=== PATIENT | female | born 2005 | race Caucasian/White ===

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

== ENCOUNTER 2023-10-10 15:25 | Outpatient (CLI) | payer OTHER, SELFPAY ==
--- OUTSIDE RECORDS SUMMARY | 2023-10-10 15:29 | XMS_ITS | Clinical Summary ---
Author Organization [employer] [facility] Address [place], [place] [address] Care Team Providers Care Deli Clerk Name Role Phone Wilner, Myrna Lemon MD Primary Care Provider Allergies No known active allergies Medications Medication Sig Dispensed Refills Start Date End Date Status levonorgestrel-ethinyl estrad, 0.1mg-20mcg, (ALESSE-28) 0.1-20 mg-mcg tabletIndications:Gener al counseling for prescription of oral contraceptives Take 1 Tablet by mouth once daily. 84 Tablet 3 02/22/2021 Active valACYclovir (VALTREX) 500 mg tabletIndications:Herpe s simplex vulvovaginitis Take 1 Tablet (500 mg) by mouth two times daily. For three days. Take with each herpes outbreak. 6 Tablet 3 01/29/2023 Active Active Problems Problem Noted Date Diagnosed Date Herpes simplex vulvovaginitis 03/07/2021 Constipation 02/02/2013 Myopia 01/04/2013 Immunizations Name Administration Dates Next Due COVID-19 vaccine (The [employer] System[employer] NTech 30mcg/0.3mL) JANETTE MERRITT 11/11/2020,10/21/2020 DTaP 10/05/2007, 5,03/02/2004,01/01,2003 HPV 9 (Gardasil 9) 05/21/2016,08/11/2015 Hepatitis A (Peds) 11/01/2013,02/02/2013 Hepatitis B (Peds) 03/02/2004,01/02/2004, 004 Hib Conjugate, Unspecified 03/02/2004,01/02/2004 ,2003 Inactivated Polio Vaccine 10/05/2007,,03/02/2004,01/01,2003 Influenza, IIV4 02/22/2021,03/22/2020 Influenza,LAIV4 Live Intrana maribeth (Flumist) 02/02/2013 MMR 08/19/2008,10/30/2004 Meningococcal Vaccine (Menveo) 02/22/2021,2015 Tdap 08/11/2015 Family History Medical History Relation Name Comments No Known Problems Father Diabetes type II Maternal Grandmother No Known Problems Mother Heart Disease Paternal Grandfather Heart Disease Paternal Uncle No Known Problems Sister Asthma No Family History Cancer-breast No Family History Cancer-colon No Family History Relation Name Status Comments Father Alive Maternal Grandfather Alive Maternal Grandmother Alive Mother Alive Paternal Grandfather Alive Paternal Grandmother Alive Paternal Uncle Sister Alive Social History Tobacco Use Types Packs/Day Years Used Date Smoking Tobacco: Passive Smo ke Exposure - Never Smoker Smokeless Tobacco: Never Tobacco Cessation:Counseling Given: Yes Comments:uncle smokes outside. Alcohol Use Standard Drinks/Week Comments Never 0 (1 standard drink = 0.6 oz pur e alcohol) PHQ-2 Answer Date Recorded PHQ-2 TOTAL SCORE 0 02/22/2021 Social Connections Answer Date Recorded Frequency of Communication with Friends and Fami ly Not on file 05/19/2021 Financial Resource Strain Answer Date R ecorded Difficulty of Paying Living Expenses Not on file 05/19/2021 Difficulty of Paying Living Expenses Not on file 05/19/2021 Sex and Gender Information Value Date Recorded Sex Assigned at Not on file Gender Identity Not on file Sexual Orientation Not on file Obstetrics History Last Filed Vital Signs Vital Sign Reading Time Taken Comments Blood Pressure 108/72 01/29/2023 3:42 PM CDT Pulse 102 01/29/2023 3:42 PM CDT Temperature 37.4 ??C (99.4 ??F) 08/18/2018 5:23 PM CD T Respiratory Rate - - Oxygen Saturation 100% 01/29/2023 3:42 PM CDT Inhaled Oxygen Concentration - - Weight 55.7 kg (122 lb 12.8 oz) 01/29/2023 3:42 PM CDT Height 166.4 cm (5' 5.5) 02/22/2021 12 :08 PM CDT Body Mass Index - - Plan of Treatment Health Maintenance Due Date Last Done Comments HIV for age 15-65 09/01/2018 Chlamydia for age 16-24 2019 BMI (ht and wt on same day) for age 18+ 09/01/2021 Hepatitis C screening for age 18-79 09/01/2021 Depression screening for age 12+ 02/22/2022 02/22/2021, 08/18/2018 Well Child Check for age 3-20 02/22/2022 02/22/2021, 08/11/2015, 11/01/2013, Additional history exists COVID-19 vaccine series ( season) 2023 07/11/2021, 11/11/2020, 10/21/2020 Influenza for age 9-49 01/18/2024 , 03/22/2020, 02/02/2013 Tetanus booster 08/10/2025 08/11/2015 Tdap Completed 08/11/2015 HPV series for age 9-26 Completed 05/21/2016, 08/10 Meningococcal series for age 11-21 Completed 02/22/2021, 08/11/2015 Pneumococcal series for age 6-64 Aged Out No longer eligible based on patient's age to complete this topic Care Teams Deli Clerk Relationship Specialty Start Date End Date Myrna Darby MD [address] [place] [address] PCP - General Family Practice 10/19/12
--- OUTSIDE RECORDS SUMMARY | 2023-10-10 15:29 | XMS_ITS | Data Portability ---
Author Organization [facility] Address [address] [place] [address] [place] [address] Assessment Encounter Date Assessment Date Assessment LastModified by Organization Details LastModified Time 03/27/2023 03/27/2023 - rash c/w CT, reviewed course and benign nature, return precautions - due for repeat CBC given anemia history - trial of Amitriptyline at HS for TMJ; refer to dentist if symptoms persist/worsen - Currently not , but not on control; amitripyline is category C (recommend d/c in case of unplanned ) [email or web address] Not available 03/27/2023 13:53:19 Plan of Treatment Reminders Order Date Submit Date Provider Last Modified By Organization Details Last Modified Time Details Appointments None recorde d. Lab CBC w/ auto diff 2022 023 SONALI Not available 4 20:51:54 BMP, serum or plasma 2019 020 SONALI Not available 0 10:19:27 CBC w/ diff 2019 020 [email or web address] Not available 0 10:19:48 Referral None recorde d. Procedures None recorde d. Surgeries None recorde d. Imaging electro cardiog kristan - 1-year history of intermi ttent syncope and palpita tions, possibl e grade 1 tricusp id murmur on exam 2019 020 SONALI Not available 0 17:13:38 Medication Orders amitrip tyline 25 mg tablet [email or web address] [address] [place], [place] [address], [place], [address], 4 17:30:05 Patient TargetsNo targets recorded. Patient InstructionsNo instructions recorded. Reason for Referral None Reported. Results Created Date Observation Date Name Description Value Unit Range Abnormal Flag LastModifiedBy Organization Detail LastModifiedTime 01/26/20 20 01/17/2020 elissa daily am No observ ation record ed. [email or web address] Not Available 01/26/2020 18:46:12 Result Notes Documentation Provider Name and Address Organization Details Recorded Time Bmp, Serum Or Plasma : CBC with anemia Malia Laughlin, KAYLA [address] [place], [address], [facility] [employer] 01/26/2020 16:59:20 Problems Name Status Onset Date Resolution Date Notes Provider Name and Address Organization Details Recorded Time Syncope Active 01/26/20 20 Malia Laughlin NP [address] [place], [address], [facility] [employer] 01/26/2020 17:00:42 Iron deficiency anemia Active 01/26/20 20 Malia Laughlin NP [address] [place], [address], [facility] [employer] 01/26/2020 17:00:48 Notes:Problem: Iron deficien cy anemia Status: Non-Chronic Problem Notes None recorded. Procedures Surgical History None recorded. Imaging Results Imaging Date Name Status LastModified by Organization Details LastModified Time 01/17/2020 electrocardiogram completed ck Informa tion not available 01/26/2020 18:46:12 Procedure Notes None recorded. Medical Equipment None Reported. Allergies No known drug allergies Medications Name Sig Start Date Stop Date Status Note LastModified by Organization Details LastModified Time Miralax 17 gram/dose oral powder take (17G) by oral route every day mixed with 8 oz. water daily x 2 weeks then qod then prn for constipat ion 03/27 completed Not Available Not Available Not Available valacyclovi r 1 gram tablet 03/27 completed Not Available Not Available Not Available sucralfate 1 gram tablet TAKE ONE TABLET BY MOUTH FOUR TIMES A DAY 03/27 completed Not Available Not Available Not Available valacyclovi r 500 mg tablet TAKE 1 TABLET BY MOUTH 2 TIMES DAILY X 3 DAYS FOR HERPES OUTBREAK 03/27 completed Not Available Not Available Not Available amitriptyli ne 25 mg tablet Take 1 tablet as needed by oral route. active Not Available Not Available No t Available ferrous sulfate 325 mg (65 mg iron) tablet Take 1 tablet every day by oral route. 03/27 completed Not Available Not Available Not Available ferrous sulfate 325 mg (65 mg iron) tablet,susie yed release 1 tablet EVERY OTHER DAY until March 1903/06 completed Not Available Not Available Not Available ondansetron 4 mg disintegrat ing tablet DISSOLVE 1 TABLET IN MOUTH EVERY EIGHT HOURS NEEDED FOR NAUSEA AND FOR VOMITING 03/27 completed Not Available Not Available Not Available Vienva 0.1 mg-20 mcg tablet TAKE 1 TABLET BY MOUTH EVERY DAY 03/27 completed Not Available Not Available Not Available Vitals Date Recorded Body height Body mass index (BMI) Percentile per age and sex Body mass index (BMI) Body weight Heart rate Heart rate Systolic blood pressure Diastolic blood pressure Systolic blood pressure Diastolic blood pressure Provider Name and Address Organization Details Last Updated DateTime 0 166.37 cm 36 % 19.6 kg/m2 32191.6 5 g 78 /min 84 /min 102 mm[Hg] 59 mm[Hg] 132 mm[Hg] 81 mm[Hg] Malia Laughlin, CARD TABLE ATTENDANT [address] [place], [address] [employer] 0 16:53:59 Date Recorded Body height Body mass index (BMI) Body mass index (BMI) Percentile per age and sex Body weight Respiratory rate Body temperature Oxygen saturation Oxygen saturation in Arterial blood by Pulse oximetry Heart rate Systolic blood pressure Diastolic blood pressure Provider Name and Address Organization Details Last Updated DateTime 3 165.1 cm 20.8 kg/m2 39 % 72100.9 7 g 16 /min 97.4 [degF] 98 % 98 % 93 /min 125 mm[Hg] 66 mm[Hg] Natalie Hart [facility] [employer] 3 12:34:47 Date Recorded Systolic blood pressure Diastolic blood pressure Provider Name and Address Organization Details Last Updated DateTime 12/01/2017 104 mm[Hg] 62 mm[Hg] Not Available [facility] 0 12/06/2019 12:57:41 Date Recorded Systolic blood pressure Diastolic blood pressure Provider Name and Address Organization Details Last Updated DateTime 01/27/2018 105 mm[Hg] 62 mm[Hg] Not Available [facility] 0 12/06/2019 12:57:41 Date Recorded Systolic blood pressure Diastolic blood pressure Provider Name and Address Organization Details Last Updated DateTime 08/19/2017 117 mm[Hg] 69 mm[Hg] Not Available [facility] 0 12/06/2019 12:57:41 Date Recorded Systolic blood pressure Diastolic blood pressure Provider Name and Address Organization Details Last Updated DateTime 10/20/2018 124 mm[Hg] 64 mm[Hg] Not Available [facility] 0 12/06/2019 12:57:41 Date Recorded Systolic blood pressure Diastolic blood pressure Provider Name and Address Organization Details Last Updated DateTime 12/01/2017 92 mm[Hg] 70 mm[Hg] Not Available [facility] 12:57:41 Social History Question Answer Notes LastModified by Organizat ion Details LastModified Time Tobacco Smoking Status Never Smoker Malia Laughlin, KAYLA [address] [place], [address], [facility] [employer] 01/12/2020 16:34:52 What Is Your Level Of Alcohol Consumption? None Information not available 01/12/2020 Are You Sexually Active? No Information not available 01/12/2020 Sex: Female Functional Status None recorded. Mental Status None recorded. Family History Relationship Description Onset Age of this Age Resolved Age Notes Paternal Grandfather Heart disease Maternal Grandmother Type 2 diabetes mellitus Paternal Aunt Kidney disease Medical History No medical history recorded. Gynecological HistoryNo gynecological history recorded. Obstetrics History GPAL:G 0 P 0 0 0 0 Immunizations Vaccine Type Date Status Provider Name and Address Organization Details Recorded Time COVID-19, mRNA, LNP-S, PF, 30 mcg/0.3 mL dose, elsy-sucrose 07/11/2021 completed SAÚL GONG [address] [place], [address], [facility] [employer] 07/11/2021 11:48:59 Past Encounters Encounter ID Performer Location Encounter Start Date Encounter Closed Date Diagnosis/Indication Diagnosis SNOMED-CT Code [id number] Malia Laughlin NP [facility] [address] [place] [address] 01/12/2020 16:12:02 01/12/2020 17:09:28 Syncope [id number] DINORA SAÚL CABA [facility] [address] [place] [address] 07/11/2021 11:34:10 07/11/2021 11:49:18 Administration of SARS-CoV-2 mRNA vaccine [id number] Nani Ramos MD [facility] [address] [place] [address] 03/27/2023 12:23:15 03/27/2023 12:53:04 Temporomandibular joint disorder 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 Microcytic anemia 456349 007 Pityriasis rosea 2715989 4 Health Concerns Section Related Observation LastModified by Organization Detai ls LastModified Time None Recorded Concern Status LastModified by Organization Details LastModified Time None Recorded Advance Directives Directive None Recorded Payers Encounter Date Sequence Insurance Name Policy Number Policy Carrera Covered Member ID Carrera Member ID Guarantor Name 03/27/2023 SLIDING FEE SCHEDULE - DISCOUNT Paulette Baez Hammonds 07/11/2021 SLIDING FEE SCHEDULE - DISCOUNT Paulette Baez Hammonds 01/12/2020 SLIDING FEE SCHEDULE - DISCOUNT Paulette Baez Hammonds Notes Date Note Type Note Provider Name and Address Organization Details Recorded Time 01/12/2020 text/html HPI Notes: 14 y. o. F presents for physical exam and due to 1-year history of dizziness, more recently with falls Associated symptoms with episodes of syncope: blacking out, heart racing and pulsing of chest, left arm falling asleep. Doesn't remember the episodes when they happen, only last a few seconds Provocative factors: Going from sitting to standing, running Has never been evaluated for this, no hx of known murmur or irregular heartbeat Drinks 4-6 bottle of water daily 1-2 cups of coffee daily Daily eating: cereal or pastry around noon, lunch around 4pm: meat, usually doesn't eat at night (maybe a snack) Has monthly periods lasting 7-8 days, has to change pad or tampon 3 times per day Denies additional symptoms - no vision changes, muscle weakness, headaches, fatigue, fever, chills, abnormal weight loss, swollen lymph nodes Malia Laughlin NP [address] [place], [address], [facility] 01/12/2020 17:03:55 07/11/2021 text/html HPI Notes: Reque sting Covid 19 vaccine booster, Pfizer last dose 11/06 DINORASAÚL ROD [address] [place], [address], [facility] [employer] 07/11/2021 11:49:18 03/27/2023 text/html HPI Notes: Vani mccray presents to clinic today for a rash she's noted intermittently over the past 1-2 months. She's had flat erythematous lesions that are sometimes itchy. Not painful. No vesicular features. No recent illness, no new exposures or pertinent travel. No contacts with similar skin lesions. Works at a [employer] locally. Also notes a popping in R jaw, sometimes painful. No trauma. Thinks she is sleeping okay, does endorse + stress. History of anemia. Has monthly menses that are fairly heavy. Not on iron supplementation at this time. Amenable to rechecking CBC. Nani Ramos MD [address] [place], [address], [facility] [employer] 03/27/2023 13:53:32 OBGyn Episode No OBEpisode recorded.
[2023-10-10 15:54] LABS: Basophils Absolute Auto 0.04 K/uL (0.00-0.30); Basophils Percent Auto 0.8 % (0.0-3.0); Eosinophils Absolute Auto 0.08 K/uL (0.00-0.50); Eosinophils Percent Auto 1.5 % (0.0-7.0); Hematocrit 28.5 % (33.0-51.0); Hemoglobin* 8.9 gm/dL (12.0-16.0); Lymphocytes Absolute Auto 2.12 K/uL (0.90-2.90); Lymphocytes Percent Auto 40.3 % (20-44); Mean Corpuscular HGB Conc 31 gm/dL (32-36); Mean Corpuscular Hemoglobin 23 pg (26-34); Mean Corpuscular Volume 74 fL (80-100); Monocytes Percent Auto 6.5 % (0.0-11.0); Neutrophils Absolute Auto 2.68 K/uL (1.7-7.0); Neutrophils Percent Auto 50.9 % (42.0-72.0); Platelet Count* 295 K/uL (140-440); RDW Coefficient of Variation % 15.6 % (11.5-15.5); Red Blood Count 3.86 m/uL (4.00-5.20); White Blood Count* 5.26 K/uL (4.50-11.00)
[2023-10-10 16:19] LABS: Slide Review Reflex No
== END 2023-10-10 15:26 | disposition home or self-care (01) ==
LOC: LAB 15:28
PROVIDERS: Visit Provider Family Medicine
DX: D64.9 Anemia, unspecified (principal)
CPT/HCPCS: 36415; 85025